=== PATIENT | female | born 1965 | race Caucasian/White ===

== ENCOUNTER 2022-05-27 18:59 | Emergency (ER) | payer OTHER ==
[~2022-05-27] VITALS: Ht 172.7 cm; Wt 89.8 kg
[2022-05-27] MEDS ORDERED: NAPROXEN500 MG PO (22:52)
[2022-05-27] MEDS ORDERED: OXYCODONE-ACET1 EAC1 PO (22:52)
[2022-05-27] MEDS ORDERED: VENTOLIN HFA18 GM INH (22:53)
[2022-05-27] MEDS ORDERED: CYCLOBENZAPRINE10 MG PO (23:02)
== END 2022-05-27 23:20 | disposition home or self-care (01) ==
LOC: ED 18:59
DX: M62.831 Muscle spasm of calf (principal); S82.202A Unspecified fracture of shaft of left tibia, initial encounter for closed fracture; S82.402A Unspecified fracture of shaft of left fibula, initial encounter for closed fracture; W19.XXXA Unspecified fall, initial encounter